=== PATIENT | female | born 1950 | race Caucasian/White ===

== ENCOUNTER 2024-04-18 09:06 | Emergency (ER) | payer MEDICARE, SELFPAY ==
[2024-04-18] VITALS (8 sets, daily range): BP systolic 117–169; BP diastolic 60–111; PULSE 68–100; RESP 14–34; TEMP 36.8; O2SAT 96–99; BMI 23.2
--- NOTE | 2024-04-18 09:30 | ED.NAVMDI ---
HPI - Nausea/Vomiting/Diarrhea General Chief complaint: Nausea/Vomiting/Diarrhea Stated complaint: vomitting for days, dehydration, dizziness Time Seen by Provider: 04/18/24 09:30 Source: patient Mode of arrival: Ambulatory History of Present Illness HPI Narrative: Patient 73-year-old female history of SVT atrial fibrillation not on anticoagulation anal cancer with 80% loss of anal sphincter functionality chronic fecal incontinence presenting today with ongoing nausea vomiting and dizziness. She says that for the last 5 weeks she has had nausea and vomiting. She feels like she is dehydrated every time she stands up she gets dizzy. She has not having dizzy symptoms now. She last vomited yesterday around 4:00 p.m.. He has a excruciating abdominal pain that seems to come and go not having any pain now. She has noted change in bowel habits. She is lost 15-20 lb over the past few weeks as well. She also reports variability in heart rate. She says it goes up to almost 200 at times. She saw naturopathic doctor who started her on arsenicum, she said that immediately gave her some shortness of breath and tachycardia with nausea vomiting and weight loss. She is obviously since stopped that medication but still having nausea vomiting and dizziness. She is here with her daughter who does not have any thing else to add. Related Data Previous Rx's Medication Instructions Recorded ondansetron 4 mg disintegrating 4 mg PO Q8H PRN nausea and 04/18/24 tablet vomiting #10 tabs Allergies Allergy/AdvReac Type Severity Reaction Status Date / Time an antibiotic Allergy Uncoded 04/18/24 09:18 anesthesia Allergy Uncoded 04/18/24 09:18 narcotic Allergy Uncoded 04/18/24 09:18 Patient History Social History Smoking Status: Unknown if ever smoked Smoking Status: Unknown if ever smoked alcohol intake frequency: holidays/special occasions only Substance Use Type: does not use Exam Initial Vital Signs Initial Vital Signs: Vital Signs Temperature 98.3 F 04/18/24 09:09 Pulse Rate 98 H 04/18/24 09:09 Respiratory Rate 14 04/18/24 09:09 Blood Pressure 169/111 H 04/18/24 09:09 Pulse Oximetry 97 04/18/24 09:09 Oxygen Delivery Method Room Air 04/18/24 09:09 GENERAL: Alert well-appearing 73 and in no acute distress. HEENT: Head atraumatic,EOMI, pupils reactive, face symmetric, moist mucous membranes CARDIOVASCULAR: Regular rate and rhythm without murmurs, rubs or gallops. RESPIRATORY: Breath sounds equal bilaterally, no wheezes rales or rhonchi. ABDOMEN: Soft, nontender. Normoactive bowel sounds all 4 quadrants. No guarding or rebound. EXTREMITIES: Normal range of motion, no clubbing or edema. Neurovascularly intact NEUROLOGICAL: Alert and oriented x4.Normal gait and speech. Cranial nerves II through XII grossly intact. SKIN: Warm, dry, no laceration, no petechiae, no rashes or lesions. Course Orders Ordered: ED Orders 04/18/24 09:13 BNP [NT-proBNP (BNP-Adult 18+)] Stat Complete Blood Count AUTO DIFF Stat Comprehensive Metabolic Panel Stat D Dimer Stat Lipase Stat Troponin & CK Cardiac Panel Stat 04/18/24 09:43 EKG-12 Lead Stat 04/18/24 10:04 CT abdomen pelvis w con Stat XR chest 1V Stat Discontinued Medications Sodium Chloride (Normal Saline 0.9%) 1,000 mls @ 1,000 mls/hr IV BOLUS ONE Stop: 04/18/24 10:42 Last Infusion: 04/18/24 11:25 Dose: Infused Documented By: Admin: 04/18/24 10:02 Dose: 1,000 mls/hr Documented By: CARLITOS Ondansetron HCl (Ondansetron 4 Mg/2 Ml Inj) 4 mg IV NOW ONE Stop: 04/18/24 09:44 Last Admin: 04/18/24 10:01 Dose: 4 mg Documented By: CARLITOS Vital Signs Vital signs: Vital Signs - 8 hr 04/18/24 09:09 04/18/24 09:13 04/18/24 09:13 Temperature 98.3 F Pulse Rate 98 H 100 H Respiratory Rate 14 Blood Pressure 169/111 H 169/111 H Pulse Oximetry 97 98 Oxygen Delivery Method Room Air 04/18/24 09:30 04/18/24 09:49 04/18/24 09:49 Temperature Pulse Rate 82 72 Respiratory Rate 24 Blood Pressure 128/60 Pulse Oximetry 96 96 Oxygen Delivery Method 04/18/24 10:00 04/18/24 10:00 04/18/24 10:30 Temperature Pulse Rate 68 75 Respiratory Rate 26 H 34 H Blood Pressure 137/65 Pulse Oximetry 98 99 Oxygen Delivery Method 04/18/24 10:44 04/18/24 10:44 04/18/24 11:00 Temperature Pulse Rate 71 77 Respiratory Rate 32 H 32 H Blood Pressure 117/64 Pulse Oximetry 99 98 Oxygen Delivery Method 04/18/24 11:00 Temperature Pulse Rate Respiratory Rate Blood Pressure 123/67 Pulse Oximetry Oxygen Delivery Method MDM - Nausea/Vomiting/Diarrhea Lab Data 04/18/24 09:13 04/18/24 09:13 Labs: Lab Results 04/18/24 Range/Units 09:13 WBC 8.9 (4.5-11.0) X10^3/uL RBC 4.58 (4.0-5.2) X10^6/uL Hgb 13.4 (12.0-16.0) g/dL Hct 40.1 (36-46) % MCV 87.5 (80-100) fL MCH 29.2 (26-34) PG MCHC 33.4 (30-36) % RDW 13.2 (11.6-14.8) % Plt Count 346 (150-400) X10^3/uL Neut % (Auto) 68.0 (50-75) % Lymph % (Auto) 21.1 L (25-40) % [place] % (Auto) 7.8 (3-14) % Eos % (Auto) 2.0 (2-4) % Baso % (Auto) 1.1 (0-2) % Neut # (Auto) 6100 (8771-2392) /uL Lymph # (Auto) 1900 (7904-8417) /uL [place] # (Auto) 700 (0-900) /uL Eos # (Auto) 200 (0-450) /uL Baso # (Auto) 100 (0-100) /uL D-Dimer 584 H (<500) ng/ml Sodium 139 (137-145) mmol/L Potassium 3.5 (3.4-5.1) mmol/L Chloride 104 (98-107) mmol/L Carbon Dioxide 25 (22-32) mmol/L BUN 20 H (7-17) mg/dL Creatinine 1.03 (0.52-1.04) mg/dL Estimated GFR 58 L (>60) mL/min BUN/Creatinine Ratio 19.4 (6-22) Glucose 102 (80-110) mg/dL Calcium 9.6 (8.4-10.2) mg/dL Total Bilirubin 0.8 (0.2-1.3) mg/dL AST 26 (14-36) IU/L ALT 19 (<35) IU/L Alkaline Phosphatase 64 (38-126) U/L Total Creatine Kinase 58 (30-135) U/L Troponin I < 0.012 (0.01-0.034) ng/mL NT-Pro-B Natriuret Pep 172 H (<125) pg/mL Total Protein 7.4 (6.3-8.2) g/dL Albumin 4.3 (3.5-5.0) g/dL Globulin 3.1 (1.7-4.1) g/dL Albumin/Globulin Ratio 1.4 (1.0-2.8) Lipase 92 (23-300) U/L Imaging Data CT scan - abdomen/pelvis: Radiologist's Impression: PROCEDURE: CT ABDOMEN PELVIS W CON INDICATIONS: ab pain wt loss hx of anal cancer TECHNIQUE: After the administration of intravenous contrast, axial sections acquired from the lung bases to the pubic symphysis. Coronal and sagittal reformats were performed. For radiation dose reduction, the following was used: automated exposure control, adjustment of mA and/or kV according to patient size. COMPARISON: [facility], CR, XR CHEST 1V, 04/18/2024, 10:08. FINDINGS: Image quality: Diagnostic. Lower Chest: A small hiatal hernia is incidentally noted. ABDOMEN: Liver: No solid mass. Gallbladder: No radiopaque gallstones or wall thickening. Biliary ducts: No biliary dilation. Pancreas: No ductal dilation. Spleen: Size is within normal limits. Adrenal Glands: No adrenal nodules. Kidneys and Ureters: No hydronephrosis. No solid mass. No complex renal cystic lesion which requires follow up. Stomach and Bowel: Moderate wall thickening and irregularity can be seen within the perianal region, which continues into the distal rectum. There is a moderate to prominent volume of stool seen within the colon. No dilated loops of small bowel are seen. Peritoneum: No abnormal intraperitoneal fluid. No free air. Ventral Wall: No significant ventral hernia. Abdominal Nodes: No retroperitoneal or mesenteric adenopathy by size criteria. Vessels: Aorta and inferior vena cava are normal in size. Atherosclerotic calcification is noted. PELVIS: Pelvic Organs: No adnexal masses are seen on either side. Bladder: No bladder wall thickening, accounting for underdistention. Pelvic Nodes: No enlarged lymph nodes. However, there is a right perirectal lymph node seen, as on series 2, image 72, measuring 7 mm. Miscellaneous: No inguinal hernias are seen. Bones: No aggressive osseous abnormality. Mild dextroconvex scoliotic curvature is seen. Age-appropriate bony degenerative changes are seen. IMPRESSION: There is moderate wall thickening seen within the perianal region and continuing into the distal rectum, which is consistent with the given clinical history. There is a moderate to prominent volume of stool seen within the colon, which is consistent with secondary constipation. 7 mm right perirectal lymph node seen, which may represent regional metastatic disease. Additional findings: Small hiatal hernia Dictated by: Carroll Ortega M.D. on 04/18/2024 at 9:41 Approved by: Carroll Ortega M.D. on 04/18/2024 at 9:45 Chest x-ray: Radiologist's Impression: PROCEDURE: XR CHEST 1V INDICATIONS: short of breath TECHNIQUE: One view of the chest was acquired. COMPARISON: [facility], CT, CT ABDOMEN PELVIS W CON, 04/18/2024, 10:10. FINDINGS: Surgical changes and devices: None. Lungs and pleura: Lungs are clear. No pleural effusions or pneumothorax. Mediastinum: The cardiac contours are within normal limits. The aorta demonstrates calcification and tortuosity. Bones and chest wall: No suspicious bony lesions. Age-appropriate bony degenerative changes are seen. Overlying soft tissues appear unremarkable. IMPRESSION: No acute cardiopulmonary abnormality is seen. Dictated by: Carroll Ortega M.D. on 04/18/2024 at 9:40 Approved by: Carroll Ortega M.D. on 04/18/2024 at 9:41 ECG Data Attestation: I personally reviewed and interpreted this ECG as follows: Prior ECG tracings: not available for review Interpretation: Normal sinus rhythm rate 65 WA interval 130 QRS 86 QTC 432 MDM Narrative Medical decision making narrative: MDM CC: Nausea vomiting dizziness abdominal pain Complicating co-morbidities: Anal cancel paroxysmal atrial fibrillation Medical records reviewed: Patient has written her own medical history, but no records Differential considered: Metastatic cancer arrhythmia coronary artery disease pulmonary embolism congestive heart failure Exam documented above, pertinent findings include: Nontoxic alert well-appearing abdomen soft nontender no respiratory distress regular rate communications tech strength is equal bilaterally able to move all extremities no facial droop Lab Test results independently reviewed as above. Pertinent findings: CBC no leukocytosis no anemia WBCs 8.9 hematocrit 40.1 CMP no electrolyte abnormalities or MADI sodium 139, potassium 3.5 BUN 20 creatinine 1.0 glucose 102 Liver enzymes bilirubin lipase within normal limits Troponin negative, BNP 172, D-dimer 584 Independently reviewed EKG as above no ischemia no arrhythmia Imaging studies independently reviewed: CT does not show any obstruction does show thickening in the rectal area consistent with history there is a 7 mm perirectal lymph node which may represent metastatic disease Chest x-ray no acute cardiopulmonary process Consultations: None Treatments: IV fluids and Zofran Re-evaluations: Patient is feeling the same she has been on a sinus rhythm on the monitor abdomen remains soft she appears nontoxic. Discussion: 73-year-old female presenting today with ongoing dizziness nausea vomiting fecal incontinence palpitations. It sounds like most of the symptoms happened chronic but maybe exacerbated over last couple of weeks. Despite her ongoing fecal incontinence and vomiting she appears hydrated with stable electrolytes and renal function. She has no significant leukocytosis. CT does not show any sort of obstruction but does show perirectal lymph node. I have discussed findings with both her and her daughter concern with history of malignancy that this maybe the malignant and may need further workup. She is adamant she does not want chemotherapy but would consider surgery. I recommend that she follow-up. She actually has an appointment with a medical leader at [facility] next month. She was given a CT report and imaging for this appointment. This time she would like a prescription for Zofran to help her with nausea vomiting at home which seems reasonable. She has not vomited here in the emergency department. She has no longer feeling dizzy. This time she feels comfortable going home Discharge Plan Departure Patient Disposition: Home Clinical Impression: Nausea & vomiting, Lymph node cancer Instructions: Nausea and Vomiting-Adult Activity Restrictions/Additional Instructions: *You have been diagnosed with you were found to have a rectal lymph node and nausea and vomiting *What to do: At this time continue to stay hydrated drink electrolyte fluids. Your CT scan there was a 7 mm right perirectal lymph node found. With your history of cancer this is concerning it maybe cancer. I strongly recommend follow-up You may consider a ZIO patch to monitor your palpitations you may also need an echocardiogram and/or stress test *Continue to take medications as directed Zofran 4 mg every 8 hours if needed for nausea or vomiting *Follow up with your primary care provider in 2-3 days or call [phone] *Return to ER if you should have persistent nausea vomiting headache dizziness abdominal pain palpitations [or] any new, worsening or concerning symptoms Prescriptions: New ondansetron 4 mg tablet,disintegrating 4 mg PO Q8H PRN (Reason: nausea and vomiting) Qty: 10 0RF Referrals: Morales Uriostegui MD [Primary Care Provider] - Stand Alone Forms: Patient Portal/API
--- NOTE | 2024-04-18 09:43 | EKG_ITS ---
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
[2024-04-18 09:51] LABS: Add Manual Diff / Slide Review NO; Basophils Absolute Auto 100 /uL (0-100); Basophils Percent Auto 1.1 % (0-2); Eosinophils Absolute Auto 200 /uL (0-450); Hematocrit 40.1 % (36-46); Hemoglobin 13.4 g/dL (12.0-16.0); Lymphocytes Absolute Auto 1900 /uL (1100-4500); Lymphocytes Percent Auto 21.1 % (25-40); Mean Corpuscular HGB Conc 33.4 % (30-36); Mean Corpuscular Hemoglobin 29.2 PG (26-34); Mean Corpuscular Volume 87.5 fL (80-100); Monocytes Absolute Auto 700 /uL (0-900); Monocytes Percent Auto 7.8 % (3-14); Neutrophils Absolute Auto 6100 /uL (1500-7000); Platelet Count 346 X10^3/uL (150-400); Red Blood Cell Count 4.58 X10^6/uL (4.0-5.2); Red Cell Distribution Width 13.2 % (11.6-14.8); White Blood Cell Count 8.9 X10^3/uL (4.5-11.0)
[2024-04-18 09:56] LABS: Alanine Aminotransferase 19 IU/L (<35); Albumin 4.3 g/dL (3.5-5.0); Albumin Globulin Ratio 1.4 (1.0-2.8); Alkaline Phosphatase 64 U/L (38-126); Aspartate Aminotransferase 26 IU/L (14-36); BUN Creatinine Ratio 19.4 (6-22); Bilirubin Total 0.8 mg/dL (0.2-1.3); Blood Urea Nitrogen 20 mg/dL (7-17); Calcium 9.6 mg/dL (8.4-10.2); Carbon Dioxide 25 mmol/L (22-32); Chloride 104 mmol/L (98-107); Creatine Kinase 58 U/L (30-135); Estimated Glomerular Filt Rate 58 mL/min (>60); Globulin 3.1 g/dL (1.7-4.1); Glucose 102 mg/dL (80-110); HEMOLYSIS < 15 (0-50); Lipase 92 U/L (23-300); Potassium 3.5 mmol/L (3.4-5.1); Sodium 139 mmol/L (137-145); Total Protein 7.4 g/dL (6.3-8.2)
[2024-04-18 09:58] LABS: D Dimer 584 ng/ml (<500)
[2024-04-18] MEDS: ONDANSETRON 4 MG/2 ML INJ IV (10:01)
[2024-04-18] MEDS: SODIUM CHLORIDE 0.9% 1,000 ML 1000 ML IV (10:02)
--- NOTE | 2024-04-18 10:04 | DI.RAD.S_ITS ---
PROCEDURE: XR CHEST 1V INDICATIONS: short of breath TECHNIQUE: One view of the chest was acquired. COMPARISON: [facility], CT, CT ABDOMEN PELVIS W CON, 04/18/2024, 10:10. FINDINGS: Surgical changes and devices: None. Lungs and pleura: Lungs are clear. No pleural effusions or pneumothorax. Mediastinum: The cardiac contours are within normal limits. The aorta demonstrates calcification and tortuosity. Bones and chest wall: No suspicious bony lesions. Age-appropriate bony degenerative changes are seen. Overlying soft tissues appear unremarkable. IMPRESSION: No acute cardiopulmonary abnormality is seen. Dictated by: Carroll Ortega M.D. on 04/18/2024 at 9:40 Approved by: Carroll Ortega M.D. on 04/18/2024 at 9:41
--- NOTE | 2024-04-18 10:04 | DI.CT.S_ITS ---
PROCEDURE: CT ABDOMEN PELVIS W CON INDICATIONS: ab pain wt loss hx of anal cancer TECHNIQUE: After the administration of intravenous contrast, axial sections acquired from the lung bases to the pubic symphysis. Coronal and sagittal reformats were performed. For radiation dose reduction, the following was used: automated exposure control, adjustment of mA and/or kV according to patient size. COMPARISON: [facility], CR, XR CHEST 1V, 04/18/2024, 10:08. FINDINGS: Image quality: Diagnostic. Lower Chest: A small hiatal hernia is incidentally noted. ABDOMEN: Liver: No solid mass. Gallbladder: No radiopaque gallstones or wall thickening. Biliary ducts: No biliary dilation. Pancreas: No ductal dilation. Spleen: Size is within normal limits. Adrenal Glands: No adrenal nodules. Kidneys and Ureters: No hydronephrosis. No solid mass. No complex renal cystic lesion which requires follow up. Stomach and Bowel: Moderate wall thickening and irregularity can be seen within the perianal region, which continues into the distal rectum. There is a moderate to prominent volume of stool seen within the colon. No dilated loops of small bowel are seen. Peritoneum: No abnormal intraperitoneal fluid. No free air. Ventral Wall: No significant ventral hernia. Abdominal Nodes: No retroperitoneal or mesenteric adenopathy by size criteria. Vessels: Aorta and inferior vena cava are normal in size. Atherosclerotic calcification is noted. PELVIS: Pelvic Organs: No adnexal masses are seen on either side. Bladder: No bladder wall thickening, accounting for underdistention. Pelvic Nodes: No enlarged lymph nodes. However, there is a right perirectal lymph node seen, as on series 2, image 72, measuring 7 mm. Miscellaneous: No inguinal hernias are seen. Bones: No aggressive osseous abnormality. Mild dextroconvex scoliotic curvature is seen. Age-appropriate bony degenerative changes are seen. IMPRESSION: There is moderate wall thickening seen within the perianal region and continuing into the distal rectum, which is consistent with the given clinical history. There is a moderate to prominent volume of stool seen within the colon, which is consistent with secondary constipation. 7 mm right perirectal lymph node seen, which may represent regional metastatic disease. Additional findings: Small hiatal hernia Dictated by: Carroll Ortega M.D. on 04/18/2024 at 9:41 Approved by: Carroll Ortega M.D. on 04/18/2024 at 9:45
[2024-04-18 10:06] LABS: NT-proBNP (BNP-Adult 18+) 172 pg/mL (<125)
[2024-04-18 10:08] LABS: Troponin I < 0.012 ng/mL (0.01-0.034)
== END 2024-04-18 11:18 | disposition home or self-care (01) ==
PROVIDERS: Emergency Provider Emergency Medicine; Family Provider Family Medicine; PCP Family Medicine
DX: R11.2 Nausea with vomiting, unspecified (principal); C77.9 Secondary and unspecified malignant neoplasm of lymph node, unspecified; Z85.048 Personal history of other malignant neoplasm of rectum, rectosigmoid junction, and anus; I48.91 Unspecified atrial fibrillation; R06.02 Shortness of breath
CPT/HCPCS: 36415; 71045; 74177; 80053; 82550; 83690; 83880; 84484; 85025; 85379; 93005; 93010; 96361; 96374; 99284; J2405; Q9967

== ENCOUNTER 2024-05-05 07:49 | Day surgery (SDC) | payer MEDICARE, SELFPAY ==
[2024-05-04 11:10] VITALS: BMI 24.3
[2024-05-05] VITALS (7 sets, daily range): BP systolic 88–102; BP diastolic 45–60; PULSE 55–72; RESP 14–17; TEMP 36.1–36.4; O2SAT 95–100; BMI 24.3
--- NOTE | 2024-05-05 | PATH_ITS ---
[facility] Accession Number: [id number] No. of containers..01 Tissue . 01 Material submitted: . rectum - RECTAL MUCOSA FROM 7 O'CLOCK . 01 Diagnosis: RECTAL MUCOSA FROM 7 O'CLOCK: Colonic mucosa with benign lymphoid aggregates. No neoplasm identified. . Specimen Comments: Additional step sections were examined. [facility] 05/07/2024 163 Local . 01 Electronically signed: . Chuckie Bains MD, Pathologist NPI- [id number] . 01 Gross description: . Received in formalin with two patient identifiers and rectal mucosa from 7 o'clock, are two hood soft tissue fragments, 0.3 to 0.5 cm in greatest dimension, submitted in A1. ([id number]) /MRV 05/07/20249 Local . 01 Pathologist provided ICD-10: K63.89 . 01 CPT . 650274 Specimen Comment: A courtesy copy of this report has been sent to [phone] Performed at: [address] [id number] MD Chuckie Bains MD Phone: [phone]
--- NOTE | 2024-05-05 08:37 | PM.PREOP ---
Pre-operative Note COVID-19 COVID-19 status: Not tested Interval Note History & Physical reviewed/Exam performed by Physician: Yes Changes to H&P: No ASA Class (for procedural sedation): II
--- NOTE | 2024-05-05 08:39 | SUR.OPER ---
Supine on padded OR bed, head on pillow, arms secured on padded arm boards at <90 degrees abduction, legs uncrossed, safety belt at thigh, tape over blanket over lower legs.
--- NOTE | 2024-05-05 09:22 | P.OP_ITS ---
Operative Date/Time/Diagnoses Date of procedure: 05/05/24 Time of procedure: 09:23 Pre-op diagnosis: History of anal cancer and abnormal imaging Post-op diagnosis: same Procedure & Clinicians Procedure: Examination under anesthesia Same procedure as scheduled: Yes Surgeon: Bishop Thorne Staff Electrical Engineer: Jase Samuel Anesthesia Type: MAC +/- Operative Notes Procedure in detail: The patient was brought to the operating room and placed on the table in the supine position. Monitored anesthesia was induced. The legs were placed in lithotomy position in stirrups. The perineum was prepped Betadine. A time-out was performed. We started with inspection of the external anus. No abnormalities were seen. Next a well lubricated finger was inserted into the rectum and swept in all directions. No hard masses were palpated. Another well lubricated finger was placed into the vaginal vault and the rectovaginal septum was palpated and felt normal. Next, a small Hill-Valencia retractor was inserted into the rectum and the distal rectal mucosa was examined. No obvious masses were visualized. There was some irregular mucosa at the 7 o'clock position in the right posterior quadrant. This tissue was biopsied with Metzenbaum scissors. There was some bleeding which was controlled with 2 [id number] 4-0 Monocryl sutures. Once hemostasis was achieved, the distal rectum was again examined under direct vision and no further abnormalities were found. We then placed a roll of Gelfoam into the rectum. The Betadine was wiped off. The patient was awakened and brought to recovery room. EBL: 10 mL Specimen: Rectal mucosa at 7 o'clock Jase BRAMBILA provided assistance with exposure, retraction and closure of incisions. Post-operative Condition: stable Disposition: PACU
== END 2024-05-05 09:20 | disposition home or self-care (01) ==
PROVIDERS: Family Provider Family Medicine; PCP Family Medicine; Referring Provider Surgery; Visit Provider Surgery
PROC: (CPT 45990; principal; 2024-05-05 09:15)
DX: R93.5 Abnormal findings on diagnostic imaging of other abdominal regions, including retroperitoneum (principal); Z85.048 Personal history of other malignant neoplasm of rectum, rectosigmoid junction, and anus; R59.0 Localized enlarged lymph nodes; I10 Essential (primary) hypertension; I48.0 Paroxysmal atrial fibrillation
CPT/HCPCS: 45100; J1885; J2405; J2704; J3010

== ENCOUNTER 2024-05-08 08:12 | Day surgery (SDC) | payer MEDICARE, SELFPAY ==
[2024-05-08 08:39] VITALS: BP 116/61; PULSE 86; RESP 16; TEMP 36.2; O2SAT 98
--- NOTE | 2024-05-08 08:45 | EKG_ITS ---
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
--- NOTE | 2024-05-08 09:27 | PM.PREOP ---
Pre-operative Note COVID-19 COVID-19 status: Not tested Interval Note History & Physical reviewed/Exam performed by Physician: Yes Changes to H&P: No ASA Class (for procedural sedation): III
[2024-05-08 09:45] VITALS: BP 81/55; PULSE 71; RESP 15; TEMP 36.3; O2SAT 95
--- NOTE | 2024-05-08 09:45 | PM.OP.COLON ---
Operative Date/Time/Diagnoses Date of procedure: 05/08/24 Time of procedure: 09:45 Pre-op diagnosis: History of anal cancer Post-op diagnosis: same Procedure & Clinicians Study performed: None Same procedure as scheduled: No Surgeon: Bishop Thorne Procedure Notes Procedure in detail: The patient was scheduled for colonoscopy. She was brought into the endoscopy room and anesthesia was administered. Time-out was performed. Before we were able to perform a digital rectal exam there was a large volume of liquid brown stool that drain through the anus. The procedure was aborted. She will be rescheduled with additional prep instructions. Post-procedure Disposition: PACU
[2024-05-08 09:50] VITALS: BP 81/54; PULSE 74; RESP 11; O2SAT 99
[2024-05-08 09:56] VITALS: BP 97/56; PULSE 75; RESP 14; TEMP 36.3; O2SAT 98
[2024-05-08 09:59] VITALS: BP 96/67; PULSE 64; RESP 14; TEMP 36.3; O2SAT 99
== END 2024-05-08 10:19 | disposition home or self-care (01) ==
PROVIDERS: Family Provider Family Medicine; PCP Family Medicine; Referring Provider Surgery; Visit Provider Surgery
PROC: 0DJD8ZZ Inspection of Lower Intestinal Tract, Via Natural or Artificial Opening Endoscopic (ICD-10-PCS; CPT 45378; principal; 2024-05-08 09:15)
DX: Z12.11 Encounter for screening for malignant neoplasm of colon (principal); Z85.048 Personal history of other malignant neoplasm of rectum, rectosigmoid junction, and anus; Z53.09 Procedure and treatment not carried out because of other contraindication
CPT/HCPCS: G0105; 93005; J2704

== ENCOUNTER → 2024-05-19 09:12 | Outpatient (CLI) | payer MEDICARE, SELFPAY ==
--- NOTE | 2024-05-19 09:13 | DI.ECHO.S_ITS ---
[facility] : : [address] : : [place] : : [id number] : : Phone: [phone] Echocardiogram Report + + :Name: ERIN VANEGAS Study Date: 05/19/2024 Height: 62 in : :[facility] ReadingLocation: Weight: 130 lb : : Gender: Female BSA: 1.6 m2 : :: 1950 Age: 73 yrs BP: 100/68 mmHg: :Reason For Study: DIZZINESS : :Ordering Physician: LUCI KIMBROUGH : :Thais Performed By: Jeanna Birch : :Referring: LUCI KIMBROUGHO : + + Interpretation Summary 1) Normal left ventricular thickness, size, wall motion, and systolic function (EF 60-65%). 2) Normal right ventricular size and function. 3) No significant valvular abnormalities. 4) No prior Echo available for comparison. Procedure: A two-dimensional transthoracic echocardiogram with color flow and Doppler was performed. The study quality was technically adequate. There is no prior echocardiogram noted for this patient. The patient had occasional PVCs during the exam. Short segments of bigeminy visualized throughout exam. The patient was in sinus bradycardia with heart rates between 57-66 bpm during the exam. Left Ventricle: The left ventricle is normal in size and wall thickness. The ejection fraction is estimated to be 60-65%. Left ventricular systolic function appears normal without focal wall motion abnormalities. Right Ventricle: The right ventricle is normal in size and function. Atria: The left atrial size is normal. Right atrial size is normal. There is no Doppler evidence for an interatrial shunt. Mitral Valve: The mitral valve is normal in structure and function. There is trace mitral regurgitation. Aortic Valve: The aortic valve is trileaflet. The aortic valve opens well. There is no aortic valve stenosis. No aortic regurgitation is present. Tricuspid Valve: The tricuspid valve is normal in structure and function. There is mild tricuspid regurgitation. The right ventricular systolic pressure is estimated to be at least 20 mmHg based on an estimated right atrial pressure of 3 mm Hg. Pulmonic Valve: The pulmonic valve leaflets are thin and pliable; valve motion is normal. There is mild pulmonic regurgitation. Great Vessels: The aortic root is normal size. The dimensions of the ascending aorta are normal. The IVC is of normal diameter and collapses greater than 50% with a sniff. This suggests a low right atrial pressure of 3 mm Hg. Pericardium/ Pleura There is no pericardial effusion. There is no pleural effusion. MMode/2D Measurements & Calculations LVIDd: 4.2 cm LVOT diam: 1.9 cm LVIDs: 2.9 cm Ao root diam: 2.9 cm FS: 32.3 % asc Aorta Diam: 3.1 cm EPSS: 0.21 cm Ao Arch Diam (Prox Trans): 2.9 cm IVSd: 0.54 cm LVPWd: 0.61 cm LV zayas. diameter/BSA (cm/m^2): 2.7 LV sys. diameter/BSA (cm/m^2): 1.8 LA A2 area: 18.1 cm2 RA long axis: 4.9 cm LA A4 area: 14.2 cm2 RA area: 15.3 cm2 LA length (vol): 4.6 cm RA vol: 40.8 ml LA vol: 47.7 ml RA : 25.6 ml/m2 LA vol index: 30.0 ml/m2 IVC diam: 1.7 cm RVD1 (basal): 3.3 cm RVD2 (mid): 2.8 cm TAPSE: 2.4 cm Doppler Measurements & Calculations Ao V2 max: 117.6 cm/sec LVOT Max Andrew: 104.2 cm/sec Ao V2 mean: 85.1 cm/sec LV V1 max P.3 mmHg Ao max P.5 mmHg LV V1 VTI: 22.6 cm Ao mean P.2 mmHg ISI(I,D): 2.5 cm2 Ao V2 VTI: 26.2 cm ISI(V,D): 2.6 cm2 sev ratio: 0.86 ISI indexed to BSA (cm^2/m^2): 1.6 MV E max andrew: 87.6 cm/sec TR max andrew: 206.8 cm/sec MV A max andrew: 65.4 cm/sec TR max P.1 mmHg MV E/A: 1.3 PA V2 max: 81.1 cm/sec Med Peak E' Andrew: 10.0 cm/sec PA V2 mean: 62.0 cm/sec E/E' med: 8.8 PA mean P.7 mmHg Lat Peak E' Andrew: 11.2 cm/sec PA pr(Accel): 13.9 mmHg E/E' lat: 7.8 E/e' average: 8.3 MV dec time: 0.24 sec SVLVOT): 65.4 ml Reading Physician:12:[id number] PM
== END ==
PROVIDERS: Family Provider Family Medicine; PCP Family Medicine; Referring Provider Family Medicine; Visit Provider Family Medicine
DX: I07.1 Rheumatic tricuspid insufficiency (principal); I48.91 Unspecified atrial fibrillation; I48.92 Unspecified atrial flutter; R42 Dizziness and giddiness
CPT/HCPCS: 93306

== ENCOUNTER → 2024-05-20 13:31 | Outpatient (CLI) | payer MEDICARE, SELFPAY | PROVIDERS: Family Provider Family Medicine; PCP Family Medicine; Referring Provider Family Medicine; Visit Provider Family Medicine | DX: I48.91 Unspecified atrial fibrillation (principal); I48.92 Unspecified atrial flutter; R42 Dizziness and giddiness; K62.5 Hemorrhage of anus and rectum; Z85.048 Personal history of other malignant neoplasm of rectum, rectosigmoid junction, and anus | CPT/HCPCS: 93246; 93248; 99215 ==

== ENCOUNTER → 2024-05-22 16:50 | Outpatient (CLI) | payer MEDICARE, SELFPAY ==
--- NOTE | 2024-05-22 16:51 | DI.MRI.S_ITS ---
PROCEDURE: MR THORACIC SPINE WO/W CON INDICATIONS: Abnormality seen on PET scan TECHNIQUE: Noncontrast sagittal T1 spin echo and T2 fast spin echo, sagittal STIR, axial T1 and T2 fast spin echo through the thoracic spine. After the administration of contrast, axial and sagittal T1 spin echo with fat saturation through the thoracic spine. COMPARISON: [facility], CR, XR CHEST 1V, 04/18/2024, 10:08. [facility], [place], [place] PET CT FUSION SKULL 2 THIGH, 05/13/2024, 12:21. FINDINGS: Image quality: Excellent. Alignment and curvature: Accentuated thoracic kyphosis is seen. No focal AP alignment abnormality is seen. Marrow: Marrow is of normal overall signal. No acute vertebral body compression fractures. Spinal cord: In this patient with this given history, scrutiny is given to the lower thoracic spinal canal at the site of the recent prior PET abnormality. Within this region, no masses or abnormal enhancement can be seen. The spinal cord and spinal canal appear normal within this region. The spinal cord elsewhere demonstrates a normal appearance, with normal caliber and normal signal, without abnormal enhancement Paraspinous soft tissues: No paravertebral masses or abnormal enhancement. Miscellaneous: A few of the larger lesions demonstrate low signal on T1 weighted images. IMPRESSION: No MRI correlate is found for the PET-CT visible abnormality within the lower thoracic spinal canal. No findings of metastasis can be seen. No masses or abnormal enhancement can be seen. Dictated by: Carroll Ortega M.D. on 05/22/2024 at 17:30 Approved by: Carroll Ortega M.D. on 05/22/2024 at 17:33
== END ==
PROVIDERS: Family Provider Family Medicine; PCP Family Medicine; Referring Provider Surgery; Visit Provider Surgery
DX: Z85.048 Personal history of other malignant neoplasm of rectum, rectosigmoid junction, and anus (principal); Z08 Encounter for follow-up examination after completed treatment for malignant neoplasm
CPT/HCPCS: 72157; A9579

== ENCOUNTER → 2025-02-01 13:32 | Outpatient (CLI) | payer MEDICARE, SELFPAY | PROVIDERS: PCP Family Medicine; Referring Provider Family Medicine; Visit Provider Family Medicine | DX: R00.0 Tachycardia, unspecified (principal) | CPT/HCPCS: 93242 ==

== ENCOUNTER → 2025-05-19 10:46 | Outpatient (CLI) | payer MEDICARE, SELFPAY | PROVIDERS: PCP Family Medicine; Referring Provider Family Medicine; Visit Provider Family Medicine | DX: R68.89 Other general symptoms and signs (principal); R06.02 Shortness of breath | CPT/HCPCS: 94060 ==